=== PATIENT | male | born 1965 | race Two or more races ===

== ENCOUNTER 2022-03-23 12:10 | Emergency (ER) | payer SELFPAY ==
[~2022-03-23] VITALS: Ht 167.6 cm; Wt 50.0 kg
[2022-03-23 12:12] VITALS: BP 138/89
== END 2022-03-23 13:55 | disposition left against medical advice (07) ==
LOC: ER 12:10
DX: R52 Pain, unspecified (principal)
CPT/HCPCS: 99283